=== PATIENT | female | born 1970 | race Native Hawaiian/Other Pacific Islander ===

== ENCOUNTER 2018-11-15 15:13 | Outpatient (CLI) | payer OTHER ==
[~2018-11-15 15:13] MED LIST: CELEBREX200 MG PO; DICY20TA34 PO; GLIP10TA55 PO; LEVO0.2T35 PO; METFORMIN ER1000 MG PO; NEXIUM40 M1 PO
== END 2018-11-15 20:00 | disposition home or self-care (01) ==
LOC: RAD 15:13
DX: M25.561 Pain in right knee (principal); M25.562 Pain in left knee

== ENCOUNTER 2018-12-18 10:39 | Outpatient (CLI) | payer OTHER | END 2018-12-18 23:20 | disposition home or self-care (01) | LOC: RAD 10:39 | DX: Z01.818 Encounter for other preprocedural examination (principal) ==

== ENCOUNTER 2019-02-11 09:28 | Outpatient (CLI) | payer OTHER | END 2019-02-11 19:12 | disposition home or self-care (01) | LOC: RAD 09:28 | DX: R07.81 Pleurodynia (principal) ==

== ENCOUNTER 2019-07-09 11:32 | Outpatient (CLI) | payer OTHER | END 2019-07-09 20:20 | disposition home or self-care (01) | LOC: RAD 11:32 | DX: Z01.818 Encounter for other preprocedural examination (principal) ==

== ENCOUNTER 2023-04-25 10:50 | Outpatient (CLI) | payer BC | END 2023-04-25 18:55 | disposition home or self-care (01) | LOC: MAMMO 10:50 | PROVIDERS: ATTEND Internal Medicine | DX: Z12.31 Encounter for screening mammogram for malignant neoplasm of breast (principal) ==